=== PATIENT | male | born 1980 | race Caucasian/White ===

== ENCOUNTER → 2017-03-30 | Outpatient (REF) ==
[~2017-03-30] MED LIST: ALLERGY PILL; ENTOCORT EC3 MG PO; IMURAN50 MG PO; INTESTINEX1 CA1 PO; LEVAQUIN 5500 MG/TA1 PO; LISINOPRIL10 MG PO; LOPERAMIDE2 MG PO; MULTIPLE VITAMI1 CAP PO; NORCO 325 MG-7.1 TAB PO; PRILOSEC 20MG20 MG PO; PROGRAF5 MG/ML; ULTRAM 50MG TAB50 MG PO; [UNRECOGNIZED DRUG - OTHER] PO
[2017-03-30 19:10] LABS: TOTAL IRON BINDING CAPACITY 330 ug/dL (261-462)
[2017-03-30 19:36] LABS: FERRITIN 32 ng/mL (18-464)
== END ==
LOC: ZLAB.WCH 18:25
DX: Z01.89 Encounter for other specified special examinations (principal)

== ENCOUNTER 2017-05-23 12:41 | Day surgery (SDC) | payer MEDICAID ==
[~2017-05-23] VITALS: Ht 154.9 cm; Wt 58.7 kg
[2017-05-23] MEDS ORDERED: VITAMIN C500 MG PO (13:29)
[2017-05-23] MEDS ORDERED: ZYRTEC ALLERGY10 MG PO (13:30)
[2017-05-23 14:23] VITALS: BP 115/95; PULSE 100; TEMP 99
[2017-05-23 15:27] VITALS: BP 128/75; PULSE 81; TEMP 97.4
[2017-05-23 15:45] VITALS: BP 133/97; PULSE 77
[2017-05-23 16:00] VITALS: BP 126/80; PULSE 80; TEMP 98.1
[2017-05-23 16:12] VITALS: BP 123/87; PULSE 93
== END 2017-05-23 16:30 | disposition home or self-care (01) ==
LOC: SDCO 12:41
DX: D12.2 Benign neoplasm of ascending colon (principal); D12.3 Benign neoplasm of transverse colon; D12.4 Benign neoplasm of descending colon; D12.5 Benign neoplasm of sigmoid colon; D12.8 Benign neoplasm of rectum; K57.30 Diverticulosis of large intestine without perforation or abscess without bleeding; K64.0 First degree hemorrhoids; K52.9 Noninfective gastroenteritis and colitis, unspecified; I10 Essential (primary) hypertension; C85.90 Non-Hodgkin lymphoma, unspecified, unspecified site; K21.9 Gastro-esophageal reflux disease without esophagitis; M19.90 Unspecified osteoarthritis, unspecified site; Z86.010 Personal history of colon polyps; Z90.49 Acquired absence of other specified parts of digestive tract
CPT/HCPCS: OP; J1720; J2704; J7030

== ENCOUNTER → 2017-07-12 | Outpatient (REF) ==
[~2017-07-12] MED LIST changes: +VITAMIN C500 MG PO; +ZYRTEC ALLERGY10 MG PO
== END ==
LOC: ZLAB.WCH 18:11
DX: Z01.89 Encounter for other specified special examinations (principal)

== ENCOUNTER 2017-10-24 13:28 | Day surgery (SDC) | payer MEDICAID ==
[~2017-10-24] VITALS: Ht 154.9 cm; Wt 58.6 kg
[~2017-10-24 13:28] MED LIST changes: +IMODIUM 2MG CAPS2 MG PO; -LOPERAMIDE2 MG PO; -VITAMIN C500 MG PO; +VITAMINC1000TA PO
[2017-10-24] MEDS ORDERED: PHARMASSURE ZIN50 MG PO (13:56)
[2017-10-24] MEDS ORDERED: B-121000 MCG PO (13:56)
[2017-10-24 14:25] VITALS: BP 114/82; PULSE 78; TEMP 98.3
[2017-10-24 16:20] VITALS: BP 123/86; PULSE 71; TEMP 97.9
[2017-10-24 16:35] VITALS: BP 127/91; PULSE 77
[2017-10-24 16:50] VITALS: BP 129/88; PULSE 74
[2017-10-24 17:59] VITALS: BP 120/86; PULSE 82
== END 2017-10-24 17:00 | disposition home or self-care (01) ==
LOC: SDCO 13:28
DX: Z09 Encounter for follow-up examination after completed treatment for conditions other than malignant neoplasm (principal); Z86.010 Personal history of colon polyps; D12.2 Benign neoplasm of ascending colon; D12.4 Benign neoplasm of descending colon; D12.5 Benign neoplasm of sigmoid colon; I10 Essential (primary) hypertension; C85.90 Non-Hodgkin lymphoma, unspecified, unspecified site; M35.9 Systemic involvement of connective tissue, unspecified
CPT/HCPCS: J2250; J2704; J7120

== ENCOUNTER → 2018-07-10 | Outpatient (REF) ==
[~2018-07-10] MED LIST changes: +B-121000 MCG PO; +PHARMASSURE ZIN50 MG PO
== END ==
LOC: ZLAB.WCH 15:55
DX: Z01.89 Encounter for other specified special examinations (principal)

== ENCOUNTER → 2018-07-16 | Outpatient (REF) ==
[2018-07-16 16:36] LABS: IRON,SERUM 39 ug/dL (35-150)
[2018-07-16 16:45] LABS: TOTAL IRON BINDING CAPACITY 360 ug/dL (261-462)
[2018-07-16 17:11] LABS: FERRITIN 22 ng/mL (18-464)
== END ==
LOC: ZLAB.WCH 16:09
DX: Z01.89 Encounter for other specified special examinations (principal)

== ENCOUNTER 2018-07-17 08:34 | Day surgery (SDC) | payer MEDICAID ==
[~2018-07-17] VITALS: Ht 154.9 cm; Wt 60.0 kg
[2018-07-17 09:07] VITALS: BP 130/88; PULSE 89; TEMP 98.4
[2018-07-17 11:15] VITALS: BP 120/85; PULSE 94; TEMP 97.8
[2018-07-17 11:30] VITALS: BP 126/88; PULSE 84
[2018-07-17 11:45] VITALS: BP 123/86; PULSE 76
[2018-07-17 12:00] VITALS: BP 125/84; PULSE 80
== END 2018-07-17 12:20 | disposition home or self-care (01) ==
LOC: SDCO 08:34
DX: Z09 Encounter for follow-up examination after completed treatment for conditions other than malignant neoplasm (principal); Z86.010 Personal history of colon polyps; K52.9 Noninfective gastroenteritis and colitis, unspecified; K64.0 First degree hemorrhoids; K57.30 Diverticulosis of large intestine without perforation or abscess without bleeding; K63.9 Disease of intestine, unspecified; E24.2 Drug-induced Cushing's syndrome; I10 Essential (primary) hypertension; I25.10 Atherosclerotic heart disease of native coronary artery without angina pectoris; K21.9 Gastro-esophageal reflux disease without esophagitis; Z85.71 Personal history of Hodgkin lymphoma; Z79.899 Other long term (current) drug therapy
CPT/HCPCS: J2704; J7030

== ENCOUNTER 2018-11-06 08:31 | Day surgery (SDC) | payer MEDICAID ==
[~2018-11-06] VITALS: Ht 154.9 cm; Wt 61.7 kg
--- NOTE | 2018-11-06 08:55 | NUR ---
The nurse attempted to start the patient's IV x2 without success. The patient appears very anxious about IV starts and has very specific locations he would like the nurse to start the IV. The patient requested that both attempts be removed without fluids being started to ensure placement because he felt they "weren't in the right spot" and wanted the IVs "taken out". GEN Howard with [facility] was called to come assess the patient for IV placement. Will continue to monitor the patient.
[2018-11-06 09:04] VITALS: BP 148/96; PULSE 95; TEMP 98.5
[2018-11-06] MEDS ORDERED: ZESTRIL 5MG5 MG PO (09:16)
[2018-11-06] MEDS ORDERED: ULTRAM 50MG TAB50 MG PO (09:17)
[2018-11-06] MEDS ORDERED: CULTURELLE CAP1 EAC1 PO (09:19)
--- NOTE | 2018-11-06 09:49 | NUR ---
Anita RN with [facility] was success in her attempt to start in IV for the procedure. The patient has LR infusing without difficulty. The patient's mother was brought back to see him just prior to be taken by cart to the procedure room. Will continue to monitor the patient when he returns to [facility].
[2018-11-06 10:15] VITALS: BP 120/83; PULSE 114; TEMP 98.1
--- NOTE | 2018-11-06 10:15 | NUR ---
The patient arrived back to [facility] from the Endoscopy Suite at this time. The patient appears alert and ambulated from the cart to the recliner in his room with the stand by assistance of two nurses. The patient's post operative vital signs were started at this time. The patient's mother is at his bedside at this time. The patient requests to try some apple juice at this time. Will continue to monitor the patient.
--- NOTE | 2018-11-06 10:35 | NUR ---
The patient is sitting up in the recliner talking with his mother and appears to be resting comfortbaly at this time. The patient appears to be tolerting the apple juice well and denies wanting anything further to eat or drink at this time. Will continue to monitor the patient.
[2018-11-06 10:37] VITALS: BP 110/82; PULSE 85
[2018-11-06 10:47] VITALS: BP 120/82; PULSE 86
--- NOTE | 2018-11-06 10:47 | NUR ---
Discharge instructions were reviewed with the patient and his mother at this time. They both verbalized understanding and have no questions for the nurse at this time. The patient's IV to his right forearm was removed and a pressure dressing was applied to the site. The nurse instructed the patient to get dressed and notify the staff when he is ready to be escorted out.
--- NOTE | 2018-11-06 11:10 | NUR ---
The patient was escorted out via wheelchair to a private vehicle by GEN Matthews. The patient's belongings and discharge paperwork were sent with him. The patient's mother is present to drive him home.
== END 2018-11-06 11:10 | disposition home or self-care (01) ==
LOC: SDCO 08:31
DX: K31.7 Polyp of stomach and duodenum (principal); K63.5 Polyp of colon; M35.9 Systemic involvement of connective tissue, unspecified; K31.89 Other diseases of stomach and duodenum; Z86.010 Personal history of colon polyps; Z79.899 Other long term (current) drug therapy; I10 Essential (primary) hypertension; I38 Endocarditis, valve unspecified; K21.9 Gastro-esophageal reflux disease without esophagitis; F41.9 Anxiety disorder, unspecified; Z85.72 Personal history of non-Hodgkin lymphomas; Z86.718 Personal history of other venous thrombosis and embolism; D64.9 Anemia, unspecified
CPT/HCPCS: J2704

== ENCOUNTER 2018-11-13 16:41 | Emergency (ER) | payer MEDICAID ==
[~2018-11-13] VITALS: Ht 154.9 cm; Wt 62.7 kg
[~2018-11-13 16:41] MED LIST changes: +CULTURELLE CAP1 EAC1 PO; +ZESTRIL 5MG5 MG PO
[2018-11-13 16:45] VITALS: TEMP 99.6
[2018-11-13 17:37] LABS: BASO % 0.1 % (0.0-2.0); EOS % 0.2 % (0-4.0); GRAN # 8.5 (1.4-6.5); GRAN % 81.2 % (42.2-75.2); LYMPH # 0.8 (1.2-3.4); LYMPH % 7.4 % (20.0-51.0); MEAN CELL VOLUME 72 fl (80.0-100.0); MEAN CORPUSCULAR HGB CONC 29 g/dl (33.0-37.0); MEAN PLATELET VOLUME 8.8 fl (7.4-10.4); MONO # 1.1 (0.1-0.6); MONO % 10.6 % (1.7-9.3); PLATELET COUNT 259 K/mm3 (130-400); RED BLOOD COUNT 4.42 M/mm3 (4.20-5.60); REDCELL DISTRIBUTION WIDTH-CV 19.4 % (11.5-14.5)
[2018-11-13 17:39] LABS: HEMATOCRIT 31.6 % (42.0-52.0); HEMOGLOBIN 9.3 g/dl (13.5-18.0); MEAN CORPUSCULAR HEMOGLOBIN 21 pg (27.0-31.0)
[2018-11-13 17:45] LABS: INR 1.1 (0.8-3.0); PROTHROMBIN TIME 12.6 SECONDS (9.7-12.8)
[2018-11-13 17:47] LABS: ALBUMIN 3.8 gm/dL (3.5-5.0); BILIRUBIN,TOTAL 0.2 mg/dL (0.0-1.0); CALCIUM 9.1 mg/dL (8.4-10.2); CREATININE, serum 0.78 (0.66-1.25); POTASSIUM 3.8 mmol/L (3.4-5.0); TOTAL PROTEIN 6.8 gm/dL (6.4-8.2)
[2018-11-13 18:40] VITALS: BP 128/81; PULSE 80
== END 2018-11-13 18:41 | disposition home or self-care (01) ==
LOC: COL.ER 16:41
PROVIDERS: Emergency Medicine
DX: I82.221 Chronic embolism and thrombosis of inferior vena cava (principal); R06.00 Dyspnea, unspecified; D64.9 Anemia, unspecified; K63.9 Disease of intestine, unspecified; Z79.01 Long term (current) use of anticoagulants
CPT/HCPCS: J7030; Q9967

== ENCOUNTER → 2018-11-28 | Outpatient (CLI) | payer MEDICAID | LOC: ZCOL.LAB 12:29 | DX: S81.801A Unspecified open wound, right lower leg, initial encounter (principal) ==

== ENCOUNTER → 2020-09-04 | Outpatient (CLI) | payer MEDICAID ==
[~2020-09-04] MED LIST changes: +ZOLOFT 100MG100 MG PO
== END ==
LOC: COL.LAB 08:00 → EDSTATUS 09-07 07:30 → SDCO 09-08 07:30 → EDSTATUS 10-12 07:30 → SDCO 10-12 07:30
DX: K43.2 Incisional hernia without obstruction or gangrene (principal); Z20.822 Contact with and (suspected) exposure to COVID-19
CPT/HCPCS: J2704

== ENCOUNTER 2020-09-08 06:58 | Day surgery (SDC) | payer MEDICAID ==
[2020-09-08] VITALS (11 sets, daily range): BP systolic 103–127; BP diastolic 65–89; PULSE 85–131; TEMP 98–98.2
[~2020-09-08] VITALS: Ht 154.9 cm; Wt 51.2 kg
[~2020-09-08 06:58] MED LIST changes: -ZOLOFT 100MG100 MG PO
[2020-09-08] MEDS ORDERED: ENTOCORT EC3 MG PO (08:06)
--- NOTE | 2020-09-08 09:05 | NUR ---
Patient returns to bay 2 per cart after having colonoscopy and kept on cart. Complains of headache and shoulders aching. IV fluids infusing. Mother in room. Temp 96.5 and room air sats 95%. Call light in reach.
--- NOTE | 2020-09-08 09:13 | NUR ---
50mcg of Fentanyl given for headache and shoulder pain by Marti White RN as ordered by Ant Dudley CRNA.
--- NOTE | 2020-09-08 09:20 | NUR ---
Resting more comfortably. Talking with mother.
--- NOTE | 2020-09-08 09:35 | NUR ---
Resting and talking with mother.
--- NOTE | 2020-09-08 09:50 | NUR ---
Resting. Warm blankets placed behind the neck. Talking with mother.
--- NOTE | 2020-09-08 10:05 | NUR ---
Resting with eyes closed and not disturbed. Mother in room.
--- NOTE | 2020-09-08 11:00 | NUR ---
Continues to rest with eyes closed. IV fluids at TKO.
--- NOTE | 2020-09-08 11:25 | NUR ---
Patient transferred to [facility] bay 7 per cart and mother accompanied pt with all belongings. Oriented to room. Assisted into the bathroom. Gait steady. IV infusing at TKO.
--- NOTE | 2020-09-08 11:35 | NUR ---
Resting on cart and warm blankets given. Call light in reach.
[2020-09-08] MEDS ORDERED: ULTRAM 50MG TAB50 MG PO (14:02)
--- NOTE | 2020-09-08 14:10 | NUR ---
Patient returns to room 7 per cart from PACU accompanied by Brittany BLEVINS and is awake and alert. IV fluids infusign at TKO and site is free of redness. Temp 96.9 and room air sats 98%. Abdominal dressing dry on the abdomen. Siderails up x2 and call light in reach. Mother in room. Patient given Sprite to drink.
--- NOTE | 2020-09-08 14:25 | NUR ---
Given muffin to eat. Denies pain or nausea.
--- NOTE | 2020-09-08 14:40 | NUR ---
Tolerates muffin and sprite. Continues to deny pain or nausea.
--- NOTE | 2020-09-08 14:55 | NUR ---
Assisted up to the bathroom and voids. Gait steady and returns to room. IV discontinued and site is free of redness.
--- NOTE | 2020-09-08 15:00 | NUR ---
Patient is able to dress self. Abdominal dressing remains dry and intact.
--- NOTE | 2020-09-08 15:09 | NUR ---
Dismissal instructions given for both the colonoscopy and hernia repair. Voices understanding of these. Tramadol script was sent to [facility]. Provided office number for Dr. Youngblood and Dr. Perez for any questions and concerns.
--- NOTE | 2020-09-08 15:12 | NUR ---
Patient dismissed to home driven by mother and taken to the front door per wheelchair and assisted into vehicle.
== END 2020-09-08 15:12 | disposition home or self-care (01) ==
LOC: SDCO 06:58
DX: K43.2 Incisional hernia without obstruction or gangrene (principal); D12.3 Benign neoplasm of transverse colon; D12.5 Benign neoplasm of sigmoid colon; K57.30 Diverticulosis of large intestine without perforation or abscess without bleeding; I10 Essential (primary) hypertension; M19.90 Unspecified osteoarthritis, unspecified site; F41.9 Anxiety disorder, unspecified; Z90.49 Acquired absence of other specified parts of digestive tract; Z79.899 Other long term (current) drug therapy; Z88.8 Allergy status to other drugs, medicaments and biological substances; Z20.822 Contact with and (suspected) exposure to COVID-19; Z95.1 Presence of aortocoronary bypass graft; Z88.1 Allergy status to other antibiotic agents
CPT/HCPCS: J0690; J2704; J3010; J3475; J7120

== ENCOUNTER 2020-12-15 08:09 | Day surgery (SDC) | payer MEDICAID ==
[~2020-12-15] VITALS: Ht 154.9 cm; Wt 51.7 kg
[2020-12-15 08:35] VITALS: BP 113/75; PULSE 90; TEMP 98.7
[2020-12-15] MEDS ORDERED: ZOLOFT 100MG100 MG PO (09:02)
[2020-12-15 10:00] VITALS: BP 105/72; PULSE 103; TEMP 97.8
--- NOTE | 2020-12-15 10:00 | NUR ---
The patient arrived back to [facility] from the endoscopy suite at this time. The patient ambulated from the cart to the recliner in his room with the assistance of two nurses and appeared to tolerate the activity well. The patient's post operative vital signs were started at this time. The patient's at his bedside. Dr. Perez is present to speak with the patient and regarding the findings of the procedure. The patient denies wanting anything to eat or drink at this time. Call light is within reach. Will continue to monitor the patient.
[2020-12-15 10:15] VITALS: BP 95/64; PULSE 77
--- NOTE | 2020-12-15 10:15 | NUR ---
The patient appears to be resting comfortably on the recliner at this time. Vital signs appear stable. Call light is within reach. remains at his bedside. The patient agrees to try some lemon [place] soda. Will continue to monitor the patient.
[2020-12-15 10:30] VITALS: BP 99/67; PULSE 75
--- NOTE | 2020-12-15 10:30 | NUR ---
The patient appears to be tolerating the soda well and denies wanting anything further to eat or drink. Call light remains within reach. at bedside.
[2020-12-15 10:45] VITALS: BP 96/68; PULSE 88
--- NOTE | 2020-12-15 10:45 | NUR ---
Discharge instructions were reviewed with the patient and his at this time. They both verbalized understanding and have no questions for the nurse at this time. The patient's IV to his right anecubital was removed and a pressure dressing was applied to the site. The nurse instructed the patient to get dressed and notify the staff when he is ready to be escorted out.
--- NOTE | 2020-12-15 11:02 | NUR ---
The patient was escorted out via wheelchair to a private vehicle by GEN Matthews. The patient's belongings and discharge paperwork were sent with him. The patient's father is present to drive him and his home.
== END 2020-12-15 11:02 | disposition home or self-care (01) ==
LOC: SDCO 08:09
DX: K31.7 Polyp of stomach and duodenum (principal); K31.89 Other diseases of stomach and duodenum; K29.30 Chronic superficial gastritis without bleeding; I38 Endocarditis, valve unspecified; I10 Essential (primary) hypertension; K21.9 Gastro-esophageal reflux disease without esophagitis; R19.7 Diarrhea, unspecified; M19.90 Unspecified osteoarthritis, unspecified site; Z85.72 Personal history of non-Hodgkin lymphomas; Z20.822 Contact with and (suspected) exposure to COVID-19; Z79.899 Other long term (current) drug therapy; K29.80 Duodenitis without bleeding; Z86.010 Personal history of colon polyps; Z90.49 Acquired absence of other specified parts of digestive tract
CPT/HCPCS: J2704; J3010; J7120

== ENCOUNTER → 2020-12-30 | Outpatient (CLI) | payer MEDICAID ==
[~2020-12-30] MED LIST changes: +ZOLOFT 100MG100 MG PO
== END ==
LOC: COL.RAD 07:12
DX: M47.812 Spondylosis without myelopathy or radiculopathy, cervical region (principal); M48.02 Spinal stenosis, cervical region; G95.89 Other specified diseases of spinal cord; R59.0 Localized enlarged lymph nodes

== ENCOUNTER → 2021-06-30 | Outpatient (CLI) | payer MEDICAID | LOC: ZCOL.LAB 16:34 | DX: S81.812A Laceration without foreign body, left lower leg, initial encounter (principal) ==

== ENCOUNTER → 2021-07-07 | Outpatient (CLI) | payer MEDICAID | LOC: ZCOL.LAB 17:08 | DX: S81.812A Laceration without foreign body, left lower leg, initial encounter (principal) ==

== ENCOUNTER → 2021-08-18 | Outpatient (CLI) | payer MEDICAID | LOC: ZCOL.LAB 15:47 | DX: S81.812A Laceration without foreign body, left lower leg, initial encounter (principal) ==

== ENCOUNTER 2023-09-22 08:23 | Inpatient (IN) | payer MEDICARE, MEDICAID ==
[~2023-09-22] VITALS: Ht 154.9 cm; Wt 54.5 kg
[2023-09-22] VITALS (122 sets, daily range): BP systolic 84–129; BP diastolic 55–76; PULSE 75–99; TEMP 98.3–99; O2SAT 37–100
[~2023-09-22 08:23] MED LIST changes: +LR 1,000 ML IV SCH
--- NOTE | 2023-09-22 09:00 | NUR ---
PATIENT IS REQUESTING MEDICATION FOR ANXIETY PRIOR TO STARTING IV. BRENDA DALEY [employer] WORKER NOTIFIED AND ORDER RECEIVED FOR ATIVAN 1MG IV AFTER IV IS STARTED. PATIENT AGREES TO THIS. 0914 #22G IV STARTED LAC X1 ATTEMPT AND IV ATIVAN GIVEN. PLACED ON PULSE OXIMTETRY. ROOM AIR SATS 94-96%. FAMILY AT BEDSIDE.
[2023-09-22] MEDS ORDERED: LORazepam 2 MG/ML 1 ML VIAL IV ONE (09:15)
[2023-09-22] MEDS ORDERED: Lidocaine PF 1% (10 MG/ML) 5 ML VIAL ONE (09:29)
--- NOTE | 2023-09-22 09:40 | NUR ---
ROOM AIR SATS 88-91% WHEN RESTING WITH EYES CLOSED AND PLACED ON OXYGEN AT 2L PER NC. AWAITS BRONCHOSCOPY.
[2023-09-22] MEDS ORDERED: Tranexamic Acid 1,000 MG/10 ML VIAL ONE (10:23)
[2023-09-22] MEDS ORDERED: Lidocaine PF 1% (10 MG/ML) 5 ML VIAL MM ONE (10:24)
[2023-09-22] MEDS ORDERED: Lidocaine 2% Viscous 15 ML UNIT DOSE MM ONE (10:24)
[2023-09-22] MEDS ORDERED: Tranexamic Acid 1,000 MG/10 ML VIAL IH ONE (10:24)
[2023-09-22] MEDS ORDERED: Rocuronium 50 MG/5 ML Multi-Dose VIAL ONE (10:26)
--- NOTE | 2023-09-22 10:38 | NUR ---
Pt arrives to ICU 7 from endoscopy at this time. Pt was intubated in endoscopy due to bleeding complications during bronchoscopy. Upon arriving to unit pt was placed on ventilator. 7.5 ETT 22cm at teeth. Propofol gtt initiated. OG tube placed 55cm at teeth and placed on LIS. 16Fr. lancaster inserted and draining to dependent drainage. Pt not tolerated ventilator well; attempts to sit up and coughs on ETT. Will continue to titrate sedation. PICC line being placed by GEN Lopez. Bilateral soft wrist restraints in placed for line protection.
[2023-09-22] MEDS ORDERED: Naloxone 0.4 MG/ML VIAL IV PRN (11:15)
[2023-09-22] MEDS ORDERED: fentaNYL 100 ML IV SCH (11:15)
[2023-09-22] MEDS ORDERED: Albuterol 0.083% Neb Soln 2.5 MG/3 ML UD IH PRN (11:15)
[2023-09-22 11:39] LABS: BASO % 0.2 % (0.0-2.0); EOS % 0.4 % (0.0-4.0); GRAN # 8.8 K/mm3 (1.4-6.5); GRAN % 86.3 % (42.2-75.2); HEMOGLOBIN 10.7 g/dl (13.5-18.0); LYMPH # 0.6 K/mm3 (1.2-3.4); LYMPH % 5.4 % (20.0-51.0); MEAN CELL VOLUME 93 fl (80.0-100.0); MEAN CORPUSCULAR HEMOGLOBIN 31 pg (27-31); MEAN CORPUSCULAR HGB CONC 33 g/dl (33.0-37.0); MEAN PLATELET VOLUME 8.2 fl (7.4-10.4); MONO # 0.7 K/mm3 (0.1-0.6); PLATELET COUNT 124 K/mm3 (130-400); REDCELL DISTRIBUTION WIDTH-CV 14.9 % (11.5-14.5)
[2023-09-22 11:41] LABS: HEMATOCRIT 32.7 % (42.0-52.0)
[2023-09-22 11:45] LABS: INR 1.2 (0.8-3.0); PROTHROMBIN TIME 13.4 SECONDS (9.7-12.8)
[2023-09-22 11:48] LABS: PARTIAL THROMBOPLASTIN TIME 30.8 SECONDS (26.0-37.0)
[2023-09-22 12:13] LABS: CALCIUM 9.3 mg/dL (8.4-10.2); CREATININE, serum 0.74 mg/dL (0.72-1.25); MAGNESIUM 1.3 mg/dL (1.6-2.6); POTASSIUM 3.6 mmol/L (3.5-4.5)
[2023-09-22] MEDS ORDERED: 1: LR 1,000 ML 2: NS 1,000 ML IV SCH (12:30)
[2023-09-22] MEDS ORDERED: *Potassium Replacement Protocol MC SCH (12:30)
[2023-09-22] MEDS ORDERED: LR 500 ML IV ONE (12:30)
[2023-09-22] MEDS ORDERED: Magnesium Sulfate 4% 50 ML IV ONE (12:30)
--- NOTE | 2023-09-22 12:52 | NUR ---
Counter Manager, Warp Hauler RN, faxed facesheet and applicable insurance information to both [facility] and [facility] to request pt transfer. Images also sent via [facility] by self and Caroline. Dr. Laya mas.
[2023-09-22 14:09] LABS: COLLECTION METHOD IN
--- NOTE | 2023-09-22 14:10 | NUR ---
D: Initial visit: Shaping Machine Tender called to room by family. Pt sedated and resting with family in the room A: Shaping Machine Tender offered prayer and had the privilege of praying with pt and family. Pt is being flown to a different hospital P: Shaping Machine Tender offered comfort in the ways of future help as the family lives in [place] and attends the laboratory assistant's [employer]ism.
[2023-09-22 14:15] LABS: PH 5.5 (5.0-8.5); URINE APPEARANCE CLEAR (CLEAR/HAZY); URINE BLOOD NEGATIVE (NEGATIVE); URINE COLOR YELLOW (YELLOW); URINE GLUCOSE NEGATIVE (NEGATIVE); URINE KETONE NEGATIVE (NEGATIVE); URINE NITRATE NEGATIVE (NEGATIVE); URINE PROTEIN(semi-quant) NEGATIVE (NEGATIVE); URINE UROBILINOGEN 0.2 E.U/dL (0.2-1.0)
[2023-09-22] MEDS ORDERED: Potassium Chloride 100 ML IV SCH (14:30)
--- NOTE | 2023-09-22 14:50 | NUR ---
Pt left facility at this time with [facility] for air transport to [facility] on the [address]. Pt's family present and aware of transfer. Pt's wedding ring removed and given to prior to transport. Pt has propofol and fentanyl running through [facility] midline; continues upon transfer. Report given to Mare with [facility]. Phone report given to GEN Wiggins at [facility]. Pt remains intubated and sedated upon leaving this facility.
== END 2023-09-22 14:50 | DRG 204 ==
LOC: SDCO 08:23 → ICU 10:30 → SDCO 10:30 → ICU 13:06
PROVIDERS: Internal Medicine Pulmonary Disease; ADMIT Hospitalist
PROC: 0B948ZX Drainage of Right Upper Lobe Bronchus, Via Natural or Artificial Opening Endoscopic, Diagnostic (ICD-10-PCS; 2023-09-22)
PROC: 0B988ZZ Drainage of Left Upper Lobe Bronchus, Via Natural or Artificial Opening Endoscopic (ICD-10-PCS; 2023-09-22)
PROC: 0B968ZX Drainage of Right Lower Lobe Bronchus, Via Natural or Artificial Opening Endoscopic, Diagnostic (ICD-10-PCS; principal; 2023-09-22 10:30)
DX: R04.2 Hemoptysis (principal)
CPT/HCPCS: A4314; C1751; C1892; J2060; J2704; J3010; J7120